=== PATIENT | female | born 1990 | race Asian ===

== ENCOUNTER 2024-09-26 07:50 | Emergency (ER) | payer MEDICAID, SELFPAY ==
[2024-09-26 07:59] VITALS: BP 122/87; PULSE 114; RESP 18; TEMP 36.8; O2SAT 99; BMI 35.6
--- NOTE | 2024-09-26 08:03 | XR_ITS ---
Examination: Pelvic ultrasound, transabdominal, complete Technique: Transabdominal ultrasound of the pelvis performed using grayscale imaging Date and time of exam: September 26, 2024 0833 hours INDICATIONS: Vaginal bleeding several weeks FINDINGS: Uterus 8.4 cm endometrial stripe 0.5 cm No uterine mass or intrauterine gestation Right ovary 3.7 cm arterial flow 13 mm follicle Left ovary 3.1 cm arterial flow 18 mm follicle IMPRESSION: Negative examination
--- NOTE | 2024-09-26 08:04 | PD.EDRME ---
Rapid Medical Screening Exam RME Arrival date/time: 09/26/24 07:50 34-year-old female presents to the emergency department today for complaints of vaginal bleeding ongoing x 4 weeks Chief Complaint: Vaginal Bleeding Vital signs: Vital Signs Temperature 98.2 F 09/26/24 07:59 Pulse Rate 114 H 09/26/24 07:59 Respiratory Rate 18 09/26/24 07:59 Blood Pressure 122/87 H 09/26/24 07:59 Pulse Oximetry (%) 99 09/26/24 07:59 Oxygen Delivery Method Room Air 09/26/24 07:59
[2024-09-26 09:20] LABS: Basophils % (Auto) 0 % (0-2.5); Eosinophils # (Auto) 0.1 Thou/mm3 (0.0-0.5); Eosinophils % (Auto) 1 % (0-10); Hematocrit 38.4 % (36.0-46.0); Hemoglobin 12.7 g/dL (12.0-16.0); Immature Granulocytes % (Auto) 0 % (0-0); Immature Granulocytes Auto 0.01 Thou/mm3 (0.00-0.00); Lymphocytes % (Auto) 31 % (10-50); Mean Corpuscular HGB Conc 33.1 g/dl (31.0-37.0); Mean Corpuscular Hemoglobin 27.1 pg (25.0-35.0); Mean Corpuscular Volume 82 fL (80-100); Monocytes # (Auto) 0.5 Thou/mm3 (0.0-0.8); Monocytes % (Auto) 8 % (0-12); Neutrophils # (Auto) 3.7 Thou/mm3 (1.8-7.7); Neutrophils % (Auto) 59 % (37-80); Nucleated Red Blood Cell % 0 /100 WBC (0); Platelet Count 290 Thou/mm3 (140-440); RDW Standard Deviation 41.9 fL (36.4-46.3); Red Blood Count 4.68 Miln/mm3 (4.00-5.20); White Blood Count 6.4 Thou/mm3 (3.6-11.0)
[2024-09-26 09:35] LABS: Partial Thromboplastin Time 28.7 Seconds (22.0-36.0); Prothrombin Time 10.9 Seconds (9.0-12.2)
[2024-09-26 09:41] LABS: Alanine Aminotransferase 16 U/L (10-49); Albumin, Serum 4.3 gm/dL (3.5-5.0); Albumin/Globulin Ratio 1.7 (1.2-2.2); Alkaline Phosphatase 75 U/L (46-116); Anion Gap 7 (7-16); Aspartate Amino Transferase 16 U/L (0-34); BUN/Creatinine Ratio 10 Ratio (12-20); Bilirubin,Total 1.1 mg/dL (0.3-1.2); Blood Urea Nitrogen 8 mg/dL (9-23); Calcium 9.2 mg/dL (8.3-10.6); Calcium (Corrected) 9.2 mg/dL (8.5-10.1); Carbon Dioxide 28.5 mMol/L (20.0-31.0); Chloride 105 mMol/L (98-107); Creatinine (Component) 0.8 mg/dL (0.6-1.3); Estimated Creatinine Clearance 99.4 mL/min (>60); Globulin 2.5 gm/dL (2.3-3.5); Glucose 130 mg/dL (74-106); Lipase 29 U/L (12-53); Osmolality,Calculated 279 (275-295); Potassium 4.3 mMol/L (3.4-5.1); Sodium 140 mMol/L (136-145); Total Protein 6.8 gm/dL (5.7-8.2); eGFR > 60 See Note
[2024-09-26 10:09] LABS: Collection Type, Urine Clean Catch
[2024-09-26 10:18] LABS: HCG Qualitative,Urine Negative
[2024-09-26 10:19] LABS: Bilirubin,Urine Negative (Negative); Blood,Urine Negative (Negative); Clarity,Urine Turbid (Clear/Hazy); Color,Urine Lt-Yellow (Lt Yel-Yel); Culture Indicated,Urine Not Indicated; Glucose, Urine Negative (Negative); Ketones,Urine Negative (Negative); Leukocyte Esterase,Urine Positive (Negative); Nitrite,Urine Negative (Negative); PH,Urine 6.5 (5.0-7.0); Protein,Urine Negative (Neg - Trace); RBC,Urine 5 /hpf (0-3); Specific Gravity,Urine 1.016 (1.001-1.035); Squamous Epithelial Cell,Urine 9 /hpf (0-5); Urobilinogen,Urine Negative mg/dL (0.0-1.0); WBC,Urine 5 /hpf (0-5)
[2024-09-26 10:37] LABS: Amphetamine/Methamp Scrn,U Positive (Negative); Barbiturate Screen,Urine Negative (Negative); Benzodiazepines Screen,Urine Negative (Negative); Benzoylecgonine Screen, Ur Negative (Negative); Fentanyl Screen,Urine Negative (Negative); Opiate Screen,Urine Negative (Negative); THC Screen,Urine Negative (Negative)
--- NOTE | 2024-09-26 11:34 | PD.EDVAGBL ---
ED OB Contraction Preg RMI/HPI General Chief complaint: Vaginal Bleeding Stated complaint: Vaginal bleeding X 4 weeks, abdominal pain Time Seen by Provider: 09/26/24 11:27 Arrival date/time: 09/26/24 07:50 RME / HPI RME / HPI Narrative: 34-year-old female presents to the emergency department today for complaints of vaginal bleeding ongoing x 4 weeks. According to the patient her bleeding stopped yesterday. Patient denies any pelvic pain denies any dizziness denies any other complaints no medications taken prior to arrival. Patient admits to abusing methamphetamine yesterday. Related Data Home Medications ?Medication ?Instructions ?Recorded ?Confirmed ferrous gluconate 324 mg (38 mg 324 mg PO BID 10/30/23 10/30/23 iron) tablet vit no.95-ferrous 1 tab PO QDAY 10/30/23 10/30/23 fumarate 28 mg-folic acid 800 mcg tablet () Previous Rx's ?Medication ?Instructions ?Recorded amoxicillin 875 mg-potassium 1 tab PO BID #10 tabs 10/31/23 clavulanate 125 mg tablet tramadol 50 mg tablet 50 mg PO Q6H PRN pain #20 tabs 10/31/23 Allergies Allergy/AdvReac Type Severity Reaction Status Date / Time No Known Allergies Allergy Verified 09/26/24 07:55 Review of Systems Review of Systems Narrative Review of Systems: Review of system reviewed and within normal limits except mentioned in HPI ED Exam Narrative Physical exam: VITAL SIGNS: Reviewed. GENERAL APPEARANCE: Alert and interactive, follows commands, no acute distress, HEAD AND FACE: Non-traumatic. ENT: PERRL, pink conjunctivitis, eyelid no trauma, Mucous membrane moist. NECK: Supple, nontender, no nuchal rigidity. CHEST: No tenderness, no crepitus, no paradoxical movement, no retractions. LUNGS: Clear, well ventilated, symmetric, no rales, no wheezing, no ronchi, no stridor, good breath sounds bilaterally. HEART: Regular rate, regular rhythm, no murmur, no gallops. ABDOMEN: Soft, positive bowel sounds, nondistended, no guarding, nontender, no rebound, no masses, RECTAL: Deferred. GENITAL: Deferred. NEUROLOGICAL: Gross motor function intact sensory function intact, Appropriate for age. MUSCULOSKELETAL: low back nontender, full range of motion. EXTREMITIES: Nontender, full range of motion. SKIN: Color pink, dry, no rash, no lacerations, no abrasions, no contusions. LYMPHATICS: Deferred. Course Quality Measures none Orders Category Date Time Status US pelvic complete Stat Exams 09/26/24 08:03 Completed CBC Stat Lab 09/26/24 08:57 Completed Chlamydia/GC/TV - PCR Stat Lab 09/26/24 10:02 Received Comprehensive Metabolic Panel Stat Lab 09/26/24 08:57 Completed Drug Screen,Urine Stat Lab 09/26/24 10:02 Completed HCG Qualitative,Urine Stat Lab 09/26/24 10:02 Completed Lipase Stat Lab 09/26/24 08:57 Completed PT [Prothrombin Time with INR] Stat Lab 09/26/24 08:57 Completed PTT [Partial Thromboplastin Time] Stat Lab 09/26/24 08:57 Completed UA, C/S IF [Urinalysis, C/S if Indicated] Stat Lab 09/26/24 10:02 Completed Vital Signs Vital signs: Vital Signs Temperature 98.2 F 09/26/24 07:59 Pulse Rate 114 H 09/26/24 07:59 Respiratory Rate 18 09/26/24 07:59 Blood Pressure 122/87 H 09/26/24 07:59 Pulse Oximetry (%) 99 09/26/24 07:59 Oxygen Delivery Method Room Air 09/26/24 07:59 Vaginal Ble[address] [facility] Narrative [facility] Narrative: 34-year-old female presents to the emergency department today for complaints of vaginal bleeding ongoing x 4 weeks. According to the patient her bleeding stopped yesterday. Patient denies any pelvic pain denies any dizziness denies any other complaints no medications taken prior to arrival. Patient admits to abusing methamphetamine yesterday. Patient's workup today all came back unremarkable except for positive methamphetamine. No sign of anemia. Ultrasound of the pelvis came back unremarkable. Patient was advised to stop using methamphetamine. Patient data External records reviewed:: None Clinical information provided by:: patient Social determinants that could affect healthcare access:: substance use Patient has the following chronic illnesses:: None How is presenting disease/condition affected by chronic disease/condition?: no chronic disease Evaluation data The following diagnostics were reviewed and interpreted by me:: lab results and radiology exam(s) Lab and/or radiology exams considered but not ordered:: None Interpretation Summary: See results in MDM Medications / Prescriptions Medications or Prescriptions considered but not ordered:: None Medication administrations:: None Consultations Consultation(s) initiated? (list below): No Diagnosis Vaginal Bleeding Differential Diagnosis: threatened , dysfunctional uterine bleeding and menometrorrhagia Most likely diagnosis given after review of the tests above:: Dysfunctional uterine bleeding Admission Indicated Admission indicated?: not indicated Explain why admission is indicated or not indicated:: Stable Admission Request Was there a request for admission?: No Disposition Plan Disposition Plan: Discharge Discharge Attestation Discharge Attestation: The patient and all family members were given an opportunity to ask questions and understood the discharge instructions. Discharge instructions specifically effects, indications for sooner follow up or return to the emergency department, and the expected course of current diagnosis. Patient condition: Stable Discharge Plan Plan Patient Disposition: HOME (Self Care) Discharge Disposition comment: Stable Prescriptions/Referrals Prescriptions/Med Rec: No Action PNV cmb#95-ferrous fumarate-FA [] 28 mg iron- 800 mcg tablet 1 tab PO QDAY Patient Comments: TAKE 1 TABLET BY MOUTH EVERY DAY ferrous gluconate 324 mg (38 mg iron) tablet 324 mg PO BID Patient Comments: TAKE 1 TABLET BY MOUTH WITH WATER OR JUICE BETWEEN MEALS TWICE A DAY amoxicillin-pot clavulanate 875-125 mg tablet 1 tab PO BID Qty: 10 0RF tramadol 50 mg tablet 50 mg PO Q6H PRN (Reason: pain) Qty: 20 0RF Referrals: Quinton Hollins MD [Primary Care Provider] - In 1 week Problem List Clinical Impression: DUB (dysfunctional uterine bleeding) Patient/Caregiver Discharge Instructions Discharge Activity: activity as tolerated Education Materials: ED Dysfunctional Uterine Bleeding Additional Instructions: Thank you for the opportunity for serving you today. You are stable for discharged . You are advised to: Follow-up with your PCP in 1 to 2 days Return to ED for worsening of symptoms Increase oral fluids Print Language: Frisian Stand Alone Forms: Conce[employer]ion Award Info., Patient Portal Info Letter TITA/CHARLES Supervising Physician TITA/CHARLES Supervising Physician: MD Emily
[2024-09-26 16:36] LABS: Chlamydia trachomatis PCR Negative (Not Detect); Neisseria Gonorrhoeae DNA PCR Negative (Not Detect); Trichomonas Negative (Negative)
== END 2024-09-26 11:38 | disposition home or self-care (01) ==
PROVIDERS: Nurse Practitioner Primary Care; Emergency Provider Emergency Medicine; PCP Family Medicine
DX: N93.8 Other specified abnormal uterine and vaginal bleeding (principal)
CPT/HCPCS: 36415; 76856; 80053; 80307; 81001; 81025; 83690; 85025; 85610; 85730; 87491; 87591; 87661; 99284

== ENCOUNTER 2025-01-07 14:18 | Emergency (ER) | payer MEDICAID, SELFPAY ==
--- NOTE | 2025-01-07 14:48 | XR_ITS ---
Examination: Pelvic ultrasound, transabdominal, complete Technique: Transabdominal ultrasound of the pelvis performed using grayscale imaging Date and time of exam: January 07, 2025, 1530 hours INDICATIONS: Vaginal bleeding beginning 30 days ago FINDINGS: Uterus 6.5 cm endometrial stripe 0.5 cm No uterine mass or intrauterine gestation Right ovary 2.9 cm arterial flow Left ovary 3.0 cm arterial flow IMPRESSION: Negative study
--- NOTE | 2025-01-07 14:48 | PD.EDRME ---
Rapid Medical Screening Exam RME Arrival date/time: 01/07/25 14:18 34-year-old female presents Emergency Department today complains of vaginal bleeding Chief Complaint: Vaginal Bleeding Time Seen by Provider: 01/07/25 14:28
[2025-01-07 14:49] VITALS: BP 157/90; PULSE 105; RESP 18; TEMP 37.2; O2SAT 99; BMI 32.4
[2025-01-07 15:24] LABS: Basophils # (Auto) 0.0 Thou/mm3 (0.0-0.2); Basophils % (Auto) 0 % (0-2.5); Eosinophils # (Auto) 0.1 Thou/mm3 (0.0-0.5); Eosinophils % (Auto) 1 % (0-10); Hematocrit 39.9 % (36.0-46.0); Hemoglobin 12.9 g/dL (12.0-16.0); Immature Granulocytes Auto 0.01 Thou/mm3 (0.00-0.00); Lymphocytes # (Auto) 1.6 Thou/mm3 (1.0-4.8); Lymphocytes % (Auto) 27 % (10-50); Mean Corpuscular HGB Conc 32.3 g/dl (31.0-37.0); Mean Corpuscular Hemoglobin 26.2 pg (25.0-35.0); Mean Corpuscular Volume 81 fL (80-100); Monocytes # (Auto) 0.5 Thou/mm3 (0.0-0.8); Monocytes % (Auto) 8 % (0-12); Neutrophils # (Auto) 3.8 Thou/mm3 (1.8-7.7); Neutrophils % (Auto) 64 % (37-80); Nucleated Red Blood Cell # 0.00 Thou/mm3 (0.00-0.00); Nucleated Red Blood Cell % 0 /100 WBC (0); Platelet Count 303 Thou/mm3 (140-440); RDW Standard Deviation 41.8 fL (36.4-46.3); Red Blood Count 4.92 Miln/mm3 (4.00-5.20); White Blood Count 5.9 Thou/mm3 (3.6-11.0)
[2025-01-07 15:38] LABS: INR 1.0 (0.9-1.3); Partial Thromboplastin Time 30.5 Seconds (22.0-36.0); Prothrombin Time 10.3 Seconds (9.0-12.2)
[2025-01-07 15:42] LABS: Alanine Aminotransferase 14 U/L (10-49); Albumin, Serum 4.7 gm/dL (3.5-5.0); Albumin/Globulin Ratio 1.7 (1.2-2.2); Alkaline Phosphatase 75 U/L (46-116); Anion Gap 8 (7-16); Aspartate Amino Transferase 15 U/L (0-34); BUN/Creatinine Ratio 7 Ratio (12-20); Bilirubin,Total 1.0 mg/dL (0.3-1.2); Blood Urea Nitrogen < 5 mg/dL (9-23); Calcium 9.7 mg/dL (8.3-10.6); Calcium (Corrected) 9.7 mg/dL (8.5-10.1); Carbon Dioxide 26.4 mMol/L (20.0-31.0); Chloride 106 mMol/L (98-107); Creatinine (Component) 0.7 mg/dL (0.6-1.3); Estimated Creatinine Clearance 116.7 mL/min (>60); Globulin 2.8 gm/dL (2.3-3.5); Glucose 98 mg/dL (74-106); Osmolality,Calculated 276 (275-295); Potassium 4.6 mMol/L (3.4-5.1); Sodium 140 mMol/L (136-145); Total Protein 7.5 gm/dL (5.7-8.2); eGFR > 60 See Note
[2025-01-07 16:01] LABS: HCG,Qualitative Serum Negative
--- NOTE | 2025-01-07 16:49 | PD.EDVAGBL ---
ED OB Contraction Preg RMI/HPI General Chief complaint: Vaginal Bleeding Stated complaint: VAG BLEEDING Time Seen by Provider: 01/07/25 14:28 Arrival date/time: 01/07/25 14:18 RME / HPI RME / HPI Narrative: 34-year-old female presents Emergency Department today complains of vaginal bleeding. Patient told me this been having bleeding for the last 30 days, severity mild. Went to PCP, and was advised to have laboratory check however [facility] will not draw blood on her due to financial issues. Patient denies any pelvic pain denies any dizziness denies any other complaints patient is ambulatory. Denies any other complaints. Related Data Home Medications ?Medication ?Instructions ?Recorded ?Confirmed ferrous gluconate 324 mg (38 mg 324 mg PO BID 10/30/23 10/30/23 iron) tablet vit no.95-ferrous 1 tab PO QDAY 10/30/23 10/30/23 fumarate 28 mg-folic acid 800 mcg tablet () Previous Rx's ?Medication ?Instructions ?Recorded amoxicillin 875 mg-potassium 1 tab PO BID #10 tabs 10/31/23 clavulanate 125 mg tablet tramadol 50 mg tablet 50 mg PO Q6H PRN pain #20 tabs 10/31/23 Allergies Allergy/AdvReac Type Severity Reaction Status Date / Time No Known Allergies Allergy Verified 09/26/24 07:55 Review of Systems Review of Systems Narrative Review of Systems: Review of system reviewed and within normal limits except mentioned in HPI ED Exam Narrative Physical exam: VITAL SIGNS: Reviewed. GENERAL APPEARANCE: Alert and interactive, follows commands, no acute distress, HEAD AND FACE: Non-traumatic. ENT: PERRL, pink conjunctivitis, eyelid no trauma, Mucous membrane moist. NECK: Supple, nontender, no nuchal rigidity. CHEST: No tenderness, no crepitus, no paradoxical movement, no retractions. LUNGS: Clear, well ventilated, symmetric, no rales, no wheezing, no ronchi, no stridor, good breath sounds bilaterally. HEART: Regular rate, regular rhythm, no murmur, no gallops. ABDOMEN: Soft, positive bowel sounds, nondistended, no guarding, nontender, no rebound, no masses, RECTAL: Deferred. GENITAL: Deferred. NEUROLOGICAL: Gross motor function intact sensory function intact, Appropriate for age. MUSCULOSKELETAL: low back nontender, full range of motion. EXTREMITIES: Nontender, full range of motion. SKIN: Color pink, dry, no rash, no lacerations, no abrasions, no contusions. LYMPHATICS: Deferred. Course Quality Measures none Orders Category Date Time Status US pelvic complete Stat Exams 01/07/25 14:48 Completed CBC Stat Lab 01/07/25 14:58 Completed Comprehensive Metabolic Panel Stat Lab 01/07/25 14:58 Completed HCG,Qualitative Serum Stat Lab 01/07/25 14:58 Completed Partial Thromboplastin Time Stat Lab 01/07/25 14:58 Completed Prothrombin Time with INR Stat Lab 01/07/25 14:58 Completed Type and Screen Stat Lab 01/07/25 14:58 Completed Vital Signs Vital signs: Vital Signs Temperature 99 F 01/07/25 14:49 Pulse Rate 105 H 01/07/25 14:49 Respiratory Rate 18 01/07/25 14:49 Blood Pressure 157/90 H 01/07/25 14:49 Pulse Oximetry (%) 99 01/07/25 14:49 Oxygen Delivery Method Room Air 01/07/25 14:49 Vaginal Bleeding MDM Narrative MDM Narrative: 34-year-old female presents Emergency Department today complains of vaginal bleeding. Patient told me this been having bleeding for the last 30 days, severity mild. Went to PCP, and was advised to have laboratory check however [facility] will not draw blood on her due to financial issues. Patient denies any pelvic pain denies any dizziness denies any other complaints patient is ambulatory. Denies any other complaints. Patient's workup today all came back normal hemoglobin of 12.9 ultrasound of pelvis came back normal also the rest of the labs unremarkable. Results discussed with the patient. Told her to follow-up with her [employer] she is stable for discharge home Patient data External records reviewed:: None Clinical information provided by:: patient Social determinants that could affect healthcare access:: none Patient has the following chronic illnesses:: None How is presenting disease/condition affected by chronic disease/condition?: no chronic disease Evaluation data The following diagnostics were reviewed and interpreted by me:: lab results and radiology exam(s) Lab and/or radiology exams considered but not ordered:: None Interpretation Summary: See results MDM Medications / Prescriptions Medications or Prescriptions considered but not ordered:: None Medication administrations:: None Consultations Consultation(s) initiated? (list below): No Diagnosis Vaginal Bleeding Differential Diagnosis: threatened , dysfunctional uterine bleeding and menometrorrhagia Most likely diagnosis given after review of the tests above:: Menometrorrhagia Admission Indicated Admission indicated?: not indicated Admission Request Was there a request for admission?: No Admission Attestation Admission request attestation: None Disposition Plan Disposition Plan: Discharge Discharge Attestation Discharge Attestation: The patient was given an opportunity to ask questions and understood the discharge instructions. Discharge instructions specifically effects, indications for sooner follow up or return to the emergency department, and the expected course of current diagnosis. Patient condition: Stable Discharge Plan Plan Patient Disposition: HOME (Self Care) Discharge Disposition comment: Stable Prescriptions/Referrals Prescriptions/Med Rec: No Action PNV no.95-ferrous fumarate-FA [] 28 mg iron- 800 mcg tablet 1 tab PO QDAY Patient Comments: TAKE 1 TABLET BY MOUTH EVERY DAY ferrous gluconate 324 mg (38 mg iron) tablet 324 mg PO BID Patient Comments: TAKE 1 TABLET BY MOUTH WITH WATER OR JUICE BETWEEN MEALS TWICE A DAY amoxicillin-pot clavulanate 875-125 mg tablet 1 tab PO BID Qty: 10 0RF tramadol 50 mg tablet 50 mg PO Q6H PRN (Reason: pain) Qty: 20 0RF Referrals: Quinton Hollins MD [Primary Care Provider, Family Practice] - In 1 week Problem List Clinical Impression: Menometrorrhagia Patient/Caregiver Discharge Instructions Discharge Activity: activity as tolerated Education Materials: Understanding Uterine Bleeding Additional Instructions: Thank you for the opportunity for serving you today. You are stable for discharged . You are advised to: Follow-up with your [employer] in 1 to 2 days Return to ED for worsening of symptoms Increase oral fluids Print Language: Kenyan Stand Alone Forms: Concepcion Award Info., Patient Portal Info Letter PA/CHARLES Supervising Physician TITA/CHARLES Supervising Physician: MD Abdulaziz
== END 2025-01-07 17:17 | disposition home or self-care (01) ==
PROVIDERS: Nurse Practitioner Primary Care; Emergency Provider Family Medicine; PCP Family Medicine
DX: N92.1 Excessive and frequent menstruation with irregular cycle (principal)
CPT/HCPCS: 36415; 76856; 80053; 84703; 85025; 85610; 85730; 86850; 86900; 86901; 99283